=== PATIENT | male | born 2000 | race African-American/Black ===

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

== ENCOUNTER 2022-05-17 03:06 | Emergency (ER) | payer OTHER ==
[2022-05-17 03:18] VITALS: BP 118/69; TEMP 99.9; BMI 19.2
[2022-05-17] MEDS ORDERED: ACETAMINOPHEN 500 MG TABLET (FP) PO ONE (06:48)
[2022-05-17] MEDS ORDERED: ACETAMINOPHEN 325 MG TABLET (FP) ONE (06:58)
[2022-05-17] MEDS ORDERED: KETOROLAC TROMETHAMINE 15 MG/ML VIAL IVPUSH ONE (08:14)
[2022-05-17] MEDS ORDERED: DEXAMETHASONE 4 MG TABLET (FP) PO ONE (08:16)
[2022-05-17] MEDS ORDERED: DEXAMETHASONE 4 MG TABLET (FP) ONE (08:24)
[2022-05-17] MEDS ORDERED: KETOROLAC TROMETHAMINE 15 MG/ML VIAL ONE (08:24)
[2022-05-17 08:55] VITALS: PULSE 91; RESP 16
== END 2022-05-17 08:55 | disposition home or self-care (01) ==
LOC: JER 03:06 → JERFT 03:06
PROC: 3E0333Z Introduction of Anti-inflammatory into Peripheral Vein, Percutaneous Approach (ICD-10-PCS; principal; 2022-05-17)
DX: J03.90 Acute tonsillitis, unspecified (principal)
CPT/HCPCS: 0241U-QW; 87651; 99284-25

== ENCOUNTER 2023-11-12 22:53 | Emergency (ER) | payer OTHER ==
[2023-11-12 23:08] VITALS: TEMP 98.8; BMI 22.4
[2023-11-13] MEDS ORDERED: IBUPROFEN 600 MG TABLET (FP) PO ONE (00:37)
[2023-11-13] MEDS ORDERED: LIDOCAINE 4% PATCH TP ONE (00:38)
[2023-11-13] MEDS: LIDOCAINE 4% PATCH TP ONE (00:43)
[2023-11-13] MEDS: IBUPROFEN 600 MG TABLET (FP) PO ONE (00:43)
[2023-11-13] MEDS: LIDOCAINE 5% TOPICAL PATCH TP ONE (00:44)
[2023-11-13 01:12] VITALS: BP 123/60; PULSE 82; RESP 16
[2023-11-13] MEDS ORDERED: CYCLOBENZAPRINE HCL 5 MG TABLET ONE (01:41)
[2023-11-13] MEDS: CYCLOBENZAPRINE HCL 5 MG TABLET PO ONE (01:43)
[2023-11-13] MEDS ORDERED: LIDOCAINE PATCH REMOVAL MC ONE (12:00)
[2023-11-13] MEDS ORDERED: LIDOCAINE PATCH REMOVAL MC SCH (22:00)
== END 2023-11-13 01:43 | disposition home or self-care (01) ==
LOC: JER 22:53
DX: M54.2 Cervicalgia (principal); B34.9 Viral infection, unspecified; R05.9 Cough, unspecified; R50.9 Fever, unspecified
CPT/HCPCS: 99283-25